=== PATIENT | female | born 1990 | race Asian ===

== ENCOUNTER 2018-05-30 16:50 | Emergency (ER) | payer OTHER ==
[~2018-05-30] VITALS: Ht 160 cm; Wt 56.7 kg
[2018-05-30 17:01] VITALS: BP 112/47
[2018-05-30 17:34] LABS: BASOPHILS % (AUTO) 1.1 % (0.0-2.0); EOSINOPHILS % (AUTO) 1.3 % (0.0-3.0); HEMATOCRIT 42.8 % (37.0-47.0); LYMPHOCYTES % (AUTO) 25.1 % (20.0-45.0); MEAN CORPUSCULAR VOLUME 94 FL (80-99); MONOCYTES % (AUTO) 8.6 % (1.0-10.0); NEUTROPHILS % (AUTO) 63.9 % (45.0-75.0); PLATELET COUNT 371 K/UL (150-450); RED BLOOD COUNT 4.54 M/UL (4.20-5.40); RED CELL DISTRIBUTION WIDTH 10.9 % (11.6-14.8); WHITE BLOOD COUNT 8.7 K/UL (4.8-10.8)
[2018-05-30 17:43] LABS: ANION GAP 7 mmol/L (5-15); BLOOD UREA NITROGEN 14 mg/dL (7-18); CALCIUM 9.2 MG/DL (8.5-10.1); CARBON DIOXIDE 30 MMOL/L (21-32); CHLORIDE 102 MMOL/L (98-107); CREATININE 0.9 MG/DL (0.55-1.30); POTASSIUM 4.1 MMOL/L (3.5-5.1); SODIUM 139 MMOL/L (136-145)
[2018-05-30 17:47] LABS: ALANINE AMINOTRANSFERASE 31 U/L (12-78); ALBUMIN 4.3 G/DL (3.4-5.0); ALKALINE PHOSPHATASE 40 U/L (46-116); AMYLASE 81 U/L (25-115); ASPARTATE AMINO TRANSFERASE 19 U/L (15-37); BILIRUBIN,TOTAL 0.5 MG/DL (0.2-1.0)
[2018-05-30 19:17] VITALS: BP 112/47
--- NOTE | 2018-05-30 20:51 | Emergency Room Report ---
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 She stuck her left index finger. She is healthy. No other significant past medical history. She has received the hepatitis B vaccine. Source patient has agreed to be tested for chest transmissible diseases. Allergies: Coded Allergies: No Known Allergies (Unverified , 05/30/18) Patient History Last Menstrual Period: 05/13/18 Nursing Documentation-[facility] Past Medical History: No Stated History Review of Systems Constitutional: Denies: fever Skin: Denies: rash, change in color Physical Exam Vital Signs Date Time Temp Pulse Resp B/P (MAP) Pulse Ox O2 Delivery O2 Flow Rate FiO2 05/30/18 17:01 98.0 77 18 112/47 97 Room Air 98.0 General Appearance: normal inspection, well appearing, no apparent distress, alert, GCS 15 Respiratory: no respiratory distress Musculoskeletal: other - small punctate wound with distal left index finger volar surface no bleeding Psychiatric: normal inspection, judgement/insight normal, memory normal Medical Decision Making Diagnostic Impression: Primary Impression: Needle stick injury of finger ER Course Needle stick injury left index finger. Source patient is HIV negative. Source patient labs will be followed by [facility]. hepatitis serology studies are pending Last Vital Signs Date Time Temp Pulse Resp B/P (MAP) Pulse Ox O2 Delivery O2 Flow Rate FiO2 05/30/18 19:17 98.0 77 18 112/47 97 Room Air 98.0 Disposition: HOME, SELF-CARE Condition: Stable Patient Instructions: Needle Stick Injury DUGLAS PEDERSEN May 30, 2018 20:51
== END 2018-05-30 19:17 | disposition home or self-care (01) ==
LOC: EMR 17:28
DX: S61.231A Puncture wound without foreign body of left index finger without damage to nail, initial encounter (principal); W46.0XXA Contact with hypodermic needle, initial encounter; Y93.89 Activity, other specified; Y92.89 Other specified places as the place of occurrence of the external cause
CPT/HCPCS: 36415; 80053; 82150; 84702; 85025; 86703; 86803; 87340; 99283